=== PATIENT | male | born 1995 | race Two or more races ===

== ENCOUNTER 2024-01-20 10:47 | Emergency (ER) | payer MEDICAID, SELFPAY ==
[2024-01-20 10:54] VITALS: BP 147/88; PULSE 95; RESP 19; TEMP 36.5; O2SAT 97; BMI 26.5
--- NOTE | 2024-01-20 11:23 | PD.EDRME ---
Rapid Medical Screening Exam RME Arrival date/time: 01/20/24 10:47 28-year-old male presents to the emergency department complaining of perianal abscess that is been ongoing for over a week. Patient reports was recently seen in the ER and discharged home on antibiotics. Patient reports symptoms have not resolved and thinks abscess has grown in size. Chief Complaint: Skin/Abscess/Foreign Body Time Seen by Provider: 01/20/24 11:17 Vital signs: Vital Signs Temperature 97.7 F 01/20/24 10:54 Pulse Rate 95 01/20/24 10:54 Respiratory Rate 19 01/20/24 10:54 Blood Pressure 147/88 H 01/20/24 10:54 Pulse Oximetry (%) 97 01/20/24 10:54 Oxygen Delivery Method Room Air 01/20/24 10:54 Vital signs reviewed by provider: Yes
[2024-01-20 11:53] LABS: Lactate (Lactic Acid) 1.3 mMol/L (0.4-2.0)
[2024-01-20 11:56] LABS: Basophils # (Auto) 0.1 Thou/mm3 (0.0-0.2); Basophils % (Auto) 1 % (0-2.5); Eosinophils # (Auto) 0.2 Thou/mm3 (0.0-0.5); Eosinophils % (Auto) 2 % (0-10); Hematocrit 46.2 % (41.0-53.0); Hemoglobin 15.9 g/dL (13.5-16.0); Immature Granulocytes % (Auto) 0 % (0-0); Immature Granulocytes Auto 0.02 Thou/mm3 (0.00-0.00); Lymphocytes # (Auto) 1.7 Thou/mm3 (1.0-4.8); Lymphocytes % (Auto) 16 % (10-50); Mean Corpuscular HGB Conc 34.4 g/dl (31.0-37.0); Mean Corpuscular Hemoglobin 27.9 pg (25.0-35.0); Mean Corpuscular Volume 81 fL (80-100); Monocytes # (Auto) 0.9 Thou/mm3 (0.0-0.8); Monocytes % (Auto) 8 % (0-12); Neutrophils # (Auto) 7.9 Thou/mm3 (1.8-7.7); Neutrophils % (Auto) 74 % (37-80); Nucleated Red Blood Cell % 0 /100 WBC (0); Platelet Count 335 Thou/mm3 (140-440); White Blood Count 10.6 Thou/mm3 (3.8-10.6)
[2024-01-20 12:26] LABS: Alanine Aminotransferase 89 U/L (10-49); Albumin, Serum 5.2 gm/dL (3.5-5.0); Albumin/Globulin Ratio 1.8 (1.2-2.2); Alkaline Phosphatase 133 U/L (46-116); Anion Gap 7 (7-16); Aspartate Amino Transferase 42 U/L (0-34); BUN/Creatinine Ratio 12 Ratio (12-20); Bilirubin,Total 1.2 mg/dL (0.3-1.2); Blood Urea Nitrogen 11 mg/dL (9-23); Carbon Dioxide 28.3 mMol/L (20.0-31.0); Chloride 103 mMol/L (98-107); Creatinine (Component) 0.9 mg/dL (0.6-1.3); Estimated Creatinine Clearance 117.2 mL/min (>60); Globulin 2.9 gm/dL (2.3-3.5); Glucose 119 mg/dL (74-106); Osmolality,Calculated 276 (275-295); Potassium 3.5 mMol/L (3.4-5.1); Procalcitonin 0.09 ng/ml (0.0-0.49); Sodium 138 mMol/L (136-145); Total Protein 8.1 gm/dL (5.7-8.2); eGFR > 60 See Note
[2024-01-20 12:52] LABS: Collection Type, Urine Clean Catch; Squamous Epithelial Cell,Urine 0 /hpf (0-5)
[2024-01-20 13:22] LABS: Bilirubin,Urine Negative (Negative); Blood,Urine Negative (Negative); Clarity,Urine Clear (Clear/Hazy); Color,Urine Lt-Yellow (Lt Yel-Yel); Culture Indicated,Urine Not Indicated; Glucose, Urine Negative (Negative); Ketones,Urine Negative (Negative); Leukocyte Esterase,Urine Negative (Negative); Nitrite,Urine Negative (Negative); Protein,Urine Negative (Neg - Trace); RBC,Urine 1 /hpf (0-3); Specific Gravity,Urine 1.014 (1.001-1.035); Urobilinogen,Urine Negative mg/dL (0.0-1.0); WBC,Urine < 1 /hpf (0-5)
[2024-01-20] MEDS: MORPHINE SULF INJ 10 MG/ML VIAL 4 MG IVP (14:11)
[2024-01-20] MEDS: ONDANSETRON INJ 2 MG/ML INJ 2 ML 4 MG IV (14:12)
[2024-01-20 14:14] VITALS: BP 126/76; PULSE 83; RESP 18; TEMP 37.7; O2SAT 96
--- NOTE | 2024-01-20 15:00 | PD.EDSKIN ---
ED Skin Abcess FB-RME/HPI General Chief complaint: Skin/Abscess/Foreign Body Stated complaint: CYST ON BACKSIDE Time Seen by Provider: 01/20/24 11:17 Source: patient Arrival date/time: 01/20/24 10:47 28-year-old male presents to the emergency department complaining of perianal abscess that is been ongoing for over a week. Patient reports was recently seen in the ER and discharged home on antibiotics. Patient reports symptoms have not resolved and thinks abscess has grown in size. Mode of arrival: ambulatory Limitations: no limitations RME / HPI RME / HPI narrative: 01/20/24 10:47 28-year-old male presents to the emergency department complaining of perianal abscess that is been ongoing for over a week. Patient reports was recently seen in the ER and discharged home on antibiotics. Patient reports symptoms have not resolved and thinks abscess has grown in size. Related Data Previous Rx's ?Medication ?Instructions ?Recorded amoxicillin 875 mg-potassium 1 tab PO Q12H 10 days #20 tabs 01/15/24 clavulanate 125 mg tablet ciprofloxacin HCl 250 mg tablet 500 mg (2 x 250 mg) PO BID 10 days 01/20/24 #40 tabs hydrocodone 5 mg-acetaminophen 325 1 tab PO BID PRN pain #10 tabs 01/20/24 mg tablet metronidazole 500 mg tablet 500 mg PO BID 10 days #20 tabs 01/20/24 Allergies Allergy/AdvReac Type Severity Reaction Status Date / Time No Known Allergies Allergy Verified 01/20/24 10:50 Review of Systems Review of Systems Systems Reviewed: All systems reviewed, normal except as documented Constitutional Constitutional: Reports system reviewed and no additional complaints, except as documented, Denies body ache(s), Denies chills and Denies fever(s) Eyes Eyes: Reports system reviewed and no additional complaints, except as documented and Denies change in vision ENT Ears, Nose, Mouth, and Throat: Reports system reviewed and no additional complaints, except as documented, Denies disequilibrium, Denies dizziness, Denies sore throat and Denies vertigo Cardiovascular Cardiovascular: Reports system reviewed and no additional complaints, except as documented, Denies chest pain and Denies dyspnea Respiratory Respiratory: Reports system reviewed and no additional complaints, except as documented, Denies chest congestion, Denies cough and Denies dyspnea Gastrointestinal Gastrointestinal: Reports system reviewed and no additional complaints, except as documented, Denies abdominal pain, Denies nausea and Denies vomiting Musculoskeletal Musculoskeletal: Reports system reviewed and no additional complaints, except as documented, Denies abnormal gait and Denies arthralgias Integumentary/Breasts Skin/Breast: Reports system reviewed and no additional complaints, except as documented, Denies erythema, Denies rash and Reports wounds (Perianal abscess) Neurologic Neurologic: Reports system reviewed and no additional complaints, except as documented, Denies abnormal gait, Denies disequilibrium, Denies dizziness and Denies vertigo Past Medical History Past Medical History CARDIAC: Positive Hypertension; Negative Cardiac Disorders or Congestive Heart Failure RESPIRATORY: Negative Chronic Obstructive Pulmonary Disease (COPD) or Asthma GENITOURINARY: Negative Renal Disease ENDOCRINE: Negative Diabetes Mellitus Type 1 or Diabetes Mellitus Type 2 HEMATOLOGIC: Negative Sickle Cell Disease Social History SMOKING STATUS: Never smoker ED Exam General Limitations: Present no limitations General appearance: Present alert and in no apparent distress Head Head exam: Present atraumatic Eye Eye exam: Present normal appearance, PERRL and EOMI ENT ENT exam: Present normal exam, normal oropharynx and mucous membranes moist Neck Neck exam: Present normal inspection, full ROM and trachea midline Chest Chest inspection: Present normal inspection and symmetric chest wall rise Respiratory Respiratory exam: Present normal lung sounds bilaterally Cardiovascular Cardiovascular exam: Present regular rate, normal rhythm and normal heart sounds Abdominal Exam Abdominal exam: Present soft and normal bowel sounds Extremities Exam Extremities exam: Present normal inspection and full ROM Back Exam Back exam: Present normal inspection and full ROM Back 1 view image: 1. Perianal abscess no obvious drainage Neurological Exam Neurological exam: Present alert, oriented X3 and CN II-XII intact Psychiatric Psychiatric exam: Present normal affect and normal mood Skin Skin exam: Present warm, dry, intact and erythema Expanded Skin Exam Type of lesion: Present abscess Distribution: Present other (Perianal) Description: Present tenderness, erythematous, swelling and indurated; Absent discharge Course Quality Measures none Orders Category Date Time Status Insert IV NOW Care 01/20/24 12:54 Completed Wound Care [Wound Care] NOW Care 01/20/24 13:03 Completed Consult to General Surgery Stat Cons 01/20/24 12:56 Ordered Blood Culture (Lab) Stat Lab 01/20/24 11:42 Results CBC Stat Lab 01/20/24 11:47 Completed CMP [Comprehensive Metabolic Panel] Stat Lab 01/20/24 11:47 Completed Lactic Acid [Lactate (Lactic Acid)] Stat Lab 01/20/24 11:47 Completed Procalcitonin Stat Lab 01/20/24 11:47 Completed Urinalysis, C/S if Indicated Stat Lab 01/20/24 12:45 Completed Lidocaine 1% 20 ml [Xylocaine 1% 20 ML] Med 01/20/24 13:03 Discontinued 20 ml INFL X1 ONE Morphine Inj Med 01/20/24 12:54 Discontinued 4 mg IVP X1 ONE Ondansetron Inj [Zofran Inj] Med 01/20/24 12:54 Discontinued 4 mg IV X1 ONE Vital Signs Vital signs: Vital Signs Temperature 97.7 F 01/20/24 10:54 Pulse Rate 95 01/20/24 10:54 Respiratory Rate 19 01/20/24 10:54 Blood Pressure 147/88 H 01/20/24 10:54 Pulse Oximetry (%) 97 01/20/24 10:54 Oxygen Delivery Method Room Air 01/20/24 10:54 97% room air within normal limits Skin / Abscess / Foreign Body MDM Narrative MDM Narrative:: 28-year-old male presents to the emergency department complaining of perianal abscess that is been ongoing for over a week. Patient reports was recently seen in the ER and discharged home on antibiotics. Patient reports symptoms have not resolved and thinks abscess has grown in size. CBC negative for any leukocytosis. CMP was unremarkable including lactic and procalcitonin. Patient does not appear septic. Dr. Pruitt consulted and agreed to perform I&D at bedside and have patient follow-up in her office on . Patient discharged on outpatient antibiotic ciprofloxacin and metronidazole. Patient appears nontoxic and hemodynamically stable. Patient given strict instructions to return to emergency department for any worsening symptoms or as needed. Patient data External records reviewed:: [facility] previous records Clinical information provided by:: patient Social determinants that could affect healthcare access:: none Patient has the following chronic illnesses:: See chart How is presenting disease/condition affected by chronic disease/condition?: uneffected by Evaluation data The following diagnostics were reviewed and interpreted by me:: lab results Lab and/or radiology exams considered but not ordered:: Ordered Interpretation Summary: Interpreted by me Medications / Prescriptions Medications or Prescriptions considered but not ordered:: Ordered Medication administrations:: Medication Administration History Discontinued Medications Lidocaine HCl (Lidocaine Hcl 1% 20 Ml Vial) 20 ml INFL X1 ONE Stop: 01/20/24 13:04 Morphine Sulfate (Morphine Sulf Inj 10 Mg/Ml Vial) 4 mg IVP X1 ONE Stop: 01/20/24 12:55 Last Admin: 01/20/24 14:11 Dose: 4 mg Documented By: EDINSON Ondansetron HCl (Ondansetron Inj 2 Mg/Ml Inj 2 Ml) 4 mg IV X1 ONE; Protocol Stop: 01/20/24 12:55 Last Admin: 01/20/24 14:12 Dose: 4 mg Documented By: EDINSON Given Consultations Consultation(s) initiated? (list below): Yes Consultation #1 (Physician, Specialty, Details): Dr Orlando Diagnosis Skin/Abscess Differential Diagnosis: abscess of skin or subcutaneous tissue and cellulitis Most likely diagnosis given after review of the tests above:: Perianal abscess Admission Indicated Admission indicated?: not indicated Explain why admission is indicated or not indicated:: Consulted with Dr. Orlando and reports patient can follow-up outpatient after I&D. Admission Request Was there a request for admission?: No Disposition Plan Disposition Plan: Discharge Discharge Attestation Discharge Attestation: The patient and all family members were given an opportunity to ask questions and understood the discharge instructions. Discharge instructions specifically effects, indications for sooner follow up or return to the emergency department, and the expected course of current diagnosis. Patient condition: Stable Discharge Plan Plan Patient Disposition: HOME (Self Care) Disposition Comment: Stable Prescriptions/Referrals Prescriptions/Med Rec: New hydrocodone-acetaminophen 5-325 mg tablet 1 tab PO BID MDD 2 tabs PRN (Reason: pain) Qty: 10 0RF metronidazole 500 mg tablet 500 mg PO BID 10 Days Qty: 20 0RF ciprofloxacin HCl 250 mg tablet 500 mg PO BID 10 Days Qty: 40 0RF No Action amoxicillin-pot clavulanate 875-125 mg tablet 1 tab PO Q12H 10 Days Qty: 20 0RF Referrals: Brittnee Carlson NP [Primary Care Provider] - In 1 week Sandra Orlando MD [Physician] - 01/25/24 Problem List Clinical Impression: Abscess, perianal Patient/Caregiver Discharge Instructions Discharge Activity: activity as tolerated Education Materials: ED ABSCESS Krystle-Anal IandD Additional Instructions: Follow-up with Dr. Pruitt on in her office. Take antibiotics as prescribed. Return to emergency department for any worsening symptoms or as needed. Print Language: Moroccan Stand Alone Forms: Katarina Award Info., Patient Portal Info Letter MD Attestation Attestation The patient was seen by the midlevel practitioner. I, the co-signing physician, was present during the entire ER visit. While I did not physically examine the patient, I was available for consultation as needed.
--- NOTE | 2024-01-20 15:16 | PD.SURCONS ---
HPI Consult details History of present illness: 28M presenting with persistent perianal abscess. Pt was seen last week in ER, at that time there was no drainable collection and pt was sent home with PO abx. Pt has been taking sitz baths and continued his abx but returned as pain has worsened. Exam consistent with worsening perianal abscess Review of Systems Review of Systems ROS Unobtainable: All systems reviewed & no additional complaints except as documented Meds Home Medications and Allergies Allergies Allergy/AdvReac Type Severity Reaction Status Date / Time No Known Allergies Allergy Verified 01/20/24 10:50 Exam Vital Signs Temp Pulse Resp BP Pulse Ox O2 Del Method 99.9 F 83 18 126/76 96 Room Air 01/20/24 14:14 01/20/24 14:14 01/20/24 14:14 01/20/24 14:14 01/20/24 14:14 01/20/24 14:14 Constitutional Constitutional: no acute distress Routine Respiratory Exam Respiratory: Present no resp distress Routine Rectal Exam Comments: left perianal fluctuance, no erythema Results Results: Laboratory Laboratory results: results reviewed Assessment & Plan Plan 28M presenting with perianal abscess refractory to PO abx. I offered aspiration vs incision and drainage and explained risks/benefits of each approach with an wholesale account executive, including the 50% possibility of developing a perianal fistula after I&D. Pt expressed understanding and prefers aspiration for now
--- NOTE | 2024-01-20 15:23 | PD.SURPROC ---
Procedures - Surgery Procedure Comment Procedure Comment: Informed consent obtained Area cleansed with iodine Aspiration with 18g needle at area of most fluctuance with return of 3cc pus Hemostasis achieved with direct pressure Pt tolerated well Abscess I/D Site: other (Perianal) Side (if applicable): left Sedation/analgesia: other (Morphine 4mg IV) Technique: needle aspiration (with 18g needle with return of approx 3cc pus) Amount of fluid (mL): 3 Irrigation: No Packing used?: none
[2024-01-20 15:45] VITALS: BP 128/78; PULSE 80; RESP 18; TEMP 36.8; O2SAT 98
== END 2024-01-20 16:09 | disposition home or self-care (01) ==
PROVIDERS: Emergency Provider Emergency Medicine; PCP Nurse Practitioner Women's Health
DX: K61.0 Anal abscess (principal)
CPT/HCPCS: 46050; 36415; 80053; 81001; 83605; 84145; 85025; 87040; 96374; 96375; 99284; J2270; J2405

== ENCOUNTER 2024-01-25 09:47 | Outpatient (AMB) | payer MEDICAID, SELFPAY ==
[2024-01-25 10:00] VITALS: BP 136/84; PULSE 64; RESP 19; TEMP 36.3; O2SAT 98; BMI 26.9
--- NOTE | 2024-01-25 10:00 | PD.GSCLVISIT ---
Vital Signs - [facility] 01/25/24 10:00 Height 1.73 m Height Method Stated Weight 80.456 kg Weight Measurement Method Standing Scale BMI 26.9 BP 136/84 H Blood Pressure Source Automatic Cuff Blood Pressure Location Right Upper Arm Position Sitting Respiration 19 Pulse 64 Pulse Source Monitor Temp 97.3 F Temp Source Temporal Artery Scan Pulse Oximetry (%) 98 Oxygen Delivery Method Room Air Med/Allergies Allergies & Medications Allergies No Known Allergies Allergy (Verified 01/25/24 10:01) Medication Reconciliation ciprofloxacin HCl 250 mg tablet 500 mg (2 x 250 mg) PO BID 10 days #40 tabs 01/20/24 [Rx Confirmed 01/25/24] hydrocodone 5 mg-acetaminophen 325 mg tablet 1 tab PO BID PRN pain #10 tabs 01/20/24 [Rx Confirmed 01/25/24] metronidazole 500 mg tablet 500 mg PO BID 10 days #20 tabs 01/20/24 [Rx Confirmed 01/25/24] hydrocortisone 2.5 % topical cream with perineal applicator 1 applic ID QD-BID PRN itching #30 grams 01/25/24 [Rx] MA Intake Visit Data Collection New Patient or Established: Established Patient (seen at [facility] within 3 years) Seen by Clinical Staff ONLY (RN/MA): No Reason for Visit:: PERIANAL ABSCESS Pain Present Currently: No Pain scale:: 0 Computer Systems Design Analyst Required: Yes PCP or OBGYN visit in last 3 months: Yes Hx Now: No Do You Feel Safe at Home: Yes Authorities Contacted: N/A Smoking Status Smoking Status: Never smoker Immunization / Flu Flu Vaccine in the Last 12 Months: No Flu Vaccine Exclusion Criteria: Refused by Patient Past Medical History Past Medical History CARDIAC: Positive Hypertension; Negative Cardiac Disorders or Congestive Heart Failure RESPIRATORY: Negative Chronic Obstructive Pulmonary Disease (COPD) or Asthma GENITOURINARY: Negative Renal Disease ENDOCRINE: Negative Diabetes Mellitus Type 1 or Diabetes Mellitus Type 2 HEMATOLOGIC: Negative Sickle Cell Disease Social History SMOKING STATUS: Smoking status: Never smoker HPI HPI Narrative 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 Pt reports that he had drainage the day of and after the procedure but not since then, and he is feeling better with less pain to the area. He has some pruritis which he is treating with alcohol wipes. He states are BMs are soft and regular without any straining ROS Review of Systems Systems Reviewed: All systems reviewed, normal except as documented Objective/Exam General General Appearance: alert, cooperative and well groomed Resp Respiratory exam: Absent respiratory distress Rectal Rectal exam: Present other (induration at left anterior perianal region with no fluctuance, no erythema or drainage) Assessment & Plan Diagnosis / Problem List (1) Abscess, perianal: Status: Inactive Assessment & Plan: 28M s/p aspiration of perianal abscess, recovering well Plan: Hydrocortisone cream PRN for itching Follow up as needed Office Procedures GNS Level of Care Nursing/Assessment Patient Status: Established Patient Nursing Assessment/Reassesment: Medication Reconciliation, Update PMH in EMR and Vital Signs Coordination of Care: Complex Care and Chronic Disease 1-5, Education Complex Pt/Fam, Consent,records obtained, informed consent, 1 Ins Authorization, Results/Orders obtained and Staff clarify orders Special Needs: Language special needs Established Patient Charge Established Patient Point Assignment: 110 Established Patient Point Charge: EP Level 3 (80-115) Patient Portal Questionaires Social History Tobacco History Smoking Status: Never smoker Domestic Abuse History Do You Feel Safe at Home: Yes Review of Systems Report any current symptoms Only answer those that you have currently: Past Medical History Past Medical History Have you ever been diagnosed with any of the following: Cardiology Problems Congestive Heart Failure: No Hypertension: Yes Respiratory Problems Chronic Obstructive Pulmonary Disease (COPD): No Asthma: No Genital/Urinary Problems Renal Disease: No Endocrine Problems Diabetes Mellitus Type 1: No Diabetes Mellitus Type 2: No Blood Problems Sickle Cell Disease: No
== END 2024-01-25 10:28 | disposition home or self-care (01) ==
PROVIDERS: PCP Nurse Practitioner Women's Health; Referring Provider Nurse Practitioner Women's Health; Supervising Provider Surgery; Visit Provider Surgery
DX: Z48.817 Encounter for surgical aftercare following surgery on the skin and subcutaneous tissue (principal)
CPT/HCPCS: 99213; G0463

== ENCOUNTER 2024-03-09 02:19 | Emergency (ER) | payer MEDICAID, SELFPAY ==
[2024-03-09 03:07] VITALS: BP 144/86; PULSE 62; RESP 16; TEMP 36.8; O2SAT 98
--- NOTE | 2024-03-09 03:22 | XR_ITS ---
Examination: Fingers, left hand first digit 3 views Technique: AP, oblique, lateral views left hand first digit 3 views. Exam date and time: March 01, 2024 0328 hrs. Indications: Injury to the hand today with first digit pain. Findings: No acute fracture No dislocation No foreign body Impression: No acute fracture
[2024-03-09] MEDS: DOXYCYCLINE 100 MG TABLET PO (03:53)
--- NOTE | 2024-03-09 04:11 | EDNOTE_ITS ---
ED Skin Abcess FB-RME/HPI General Chief complaint: Hand/Wrist Problems Stated complaint: TORN IN LEFT THUMB Time Seen by Provider: 03/09/24 03:14 Arrival date/time: 03/09/24 02:19 28M with no significant PMH presents to ED with 2 days of L thumb pain after he accidentally got a splinter stuck in it. Patient took part of it out, but the rest is embedded in the skin. Patient has had a tetanus shot in the past 5 years. Limitations: no limitations Related Data Previous Rx's ?Medication ?Instructions ?Recorded hydrocodone 5 mg-acetaminophen 325 1 tab PO BID PRN pain #10 tabs 01/20/24 mg tablet hydrocortisone 2.5 % topical cream 1 applic [place] QD-BID PRN itching #30 01/25/24 with perineal applicator grams doxycycline hyclate 100 mg tablet 100 mg PO BID 7 days #14 tabs 03/09/24 Allergies Allergy/AdvReac Type Severity Reaction Status Date / Time No Known Allergies Allergy Verified 03/09/24 02:21 Review of Systems Review of Systems Systems Reviewed: All systems reviewed, normal except as documented Constitutional Constitutional: Reports system reviewed and no additional complaints, except as documented, Denies fever(s) and Denies headache(s) ENT Ears, Nose, Mouth, and Throat: Denies disequilibrium and Denies headache(s) Cardiovascular Cardiovascular: Reports system reviewed and no additional complaints, except as documented, Denies chest pain and Denies dyspnea Respiratory Respiratory: Reports system reviewed and no additional complaints, except as documented, Denies cough and Denies dyspnea Gastrointestinal Gastrointestinal: Reports system reviewed and no additional complaints, except as documented, Denies abdominal pain, Denies nausea and Denies vomiting Integumentary/Breasts Skin/Breast: Reports as per HPI and Reports skin pain Neurologic Neurologic: Reports system reviewed and no additional complaints, except as documented, Denies confusion, Denies disequilibrium and Denies headache(s) Psychiatric Psychiatric: Denies confusion Past Medical History Past Medical History CARDIAC: Positive Hypertension; Negative Cardiac Disorders or Congestive Heart Failure RESPIRATORY: Negative Chronic Obstructive Pulmonary Disease (COPD) or Asthma GENITOURINARY: Negative Renal Disease ENDOCRINE: Negative Diabetes Mellitus Type 1 or Diabetes Mellitus Type 2 HEMATOLOGIC: Negative Sickle Cell Disease Social History SMOKING STATUS: Never smoker ED Exam General Limitations: Present no limitations General appearance: Present alert and in no apparent distress Head Head exam: Present atraumatic Eye Eye exam: Present normal appearance, PERRL and EOMI ENT ENT exam: Present normal exam, normal oropharynx and mucous membranes moist Neck Neck exam: Present normal inspection, full ROM and trachea midline Chest Chest inspection: Present normal inspection and symmetric chest wall rise Respiratory Respiratory exam: Present normal lung sounds bilaterally Cardiovascular Cardiovascular exam: Present regular rate, normal rhythm and normal heart sounds Abdominal Exam Abdominal exam: Present soft and normal bowel sounds Extremities Exam Extremities exam: Present full ROM Expanded Upper Extremity Exam Hand exam: Present full ROM, tenderness, laceration (L thumb puncture wound) and erythema Back Exam Back exam: Present normal inspection and full ROM Neurological Exam Neurological exam: Present alert, oriented X3 and CN II-XII intact Psychiatric Psychiatric exam: Present normal affect and normal mood Skin Skin exam: Present warm, dry, intact and normal color Course Quality Measures none Orders Category Date Time Status Wound Care NOW Care 03/09/24 03:14 Active XR finger LT min 2V Stat Exams 03/09/24 03:22 Taken Doxycycline [Vibramycin] Med 03/09/24 03:40 Discontinued 100 mg PO X1 ONE Vital Signs Vital signs: Vital Signs Temperature 98.2 F 03/09/24 03:07 Pulse Rate 62 03/09/24 03:07 Respiratory Rate 16 03/09/24 03:07 Blood Pressure 144/86 H 03/09/24 03:07 Pulse Oximetry (%) 98 03/09/24 03:07 Oxygen Delivery Method Room Air 03/09/24 03:07 O2 at 98% on RA and WNLs Skin / Abscess / Foreign Body MDM Narrative MDM Narrative:: 28M with no significant PMH presents to ED with 2 days of L thumb pain after he accidentally got a splinter stuck in it. Patient took part of it out, but the rest is embedded in the skin. Patient has had a tetanus shot in the past 5 year s. Physical exam reveals puncture wound near L thumbnail, as well as some redness/tenderness. ROM intact. Patient is afebrile, calm, and alert. Wet XR read reveals no opaque FB. Given no obvious visualization and being in important neurovascular structures, will not blindly dig for splinter as skin will form granuloma around it or push it out. ABX prophylaxis given. Patient data External records reviewed:: [facility] previous records Clinical information provided by:: patient Social determinants that could affect healthcare access:: none Patient has the following chronic illnesses:: none How is presenting disease/condition affected by chronic disease/condition?: no chronic disease Evaluation data The following diagnostics were reviewed and interpreted by me:: radiology exam(s) Lab and/or radiology exams considered but not ordered:: ordered Interpretation Summary: above Medications / Prescriptions Medications or Prescriptions considered but not ordered:: ordered Medication administrations:: Medication Administration History Discontinued Medications Doxycycline Hyclate (Doxycycline 100 Mg Tablet) 100 mg PO X1 ONE Stop: 03/09/24 03:41 Last Admin: 03/09/24 03:53 Dose: 100 mg Documented By: CVL above Consultations Consultation(s) initiated? (list below): No Diagnosis Skin/Abscess Differential Diagnosis: abscess of skin or subcutaneous tissue, viral exanthem, dermatophytosis, urticaria, herpes zoster, allergic reaction to drug, cellulitis, eczema, impetigo, contact dermatitis and other (FB skin) Most likely diagnosis given after review of the tests above:: FB skin Admission Indicated Admission indicated?: not indicated Admission Request Was there a request for admission?: No Disposition Plan Disposition Plan: Discharge Discharge Attestation Discharge Attestation: The patient and all family members were given an opportunity to ask questions and understood the discharge instructions. Discharge instructions specifically effects, indications for sooner follow up or return to the emergency department, and the expected course of current diagnosis. Patient condition: Stable Discharge Plan Plan Patient Disposition: HOME (Self Care) Disposition Comment: Stable Prescriptions/Referrals Prescriptions/Med Rec: New doxycycline hyclate 100 mg tablet 100 mg PO BID 7 Days Qty: 14 0RF No Action hydrocortisone 2.5 % cream with perineal applicator 1 applic [place] QD-BID PRN (Reason: itching) Qty: 30 0RF hydrocodone-acetaminophen 5-325 mg tablet 1 tab PO BID MDD 2 tabs PRN (Reason: pain) Qty: 10 0RF Problem List Clinical Impression: Foreign body in skin Patient/Caregiver Discharge Instructions Education Materials: ED Foreign Body Soft Tissue Additional Instructions: Please follow-up with PCP within 24-48 hours and return immediately if symptoms worsen. Keep area clean, bandaged and dry. Print Language: Kittitian Stand Alone Forms: Patient Portal Info Letter CAM/SILVESTRE Supervising Physician CAM/SILVESTRE Supervising Physician: Dr. Contreras
== END 2024-03-09 03:57 | disposition home or self-care (01) ==
LOC: SERX 04:29
PROVIDERS: Emergency Provider Emergency Medicine; PCP Family Medicine
DX: S60.352A Superficial foreign body of left thumb, initial encounter (principal); W45.8XXA Other foreign body or object entering through skin, initial encounter
CPT/HCPCS: 73140; 99283; A9270

== ENCOUNTER → 2024-05-27 | Outpatient (CLI) | payer SELFPAY ==
[2024-05-27 09:35] LABS: Motl CLS 2 60
[2024-05-27 11:32] LABS: % Variance Motility 0 %; Motl CLS 1 60; Room Temperature 23 (20-27C (Area)); Sperm Motility 60 % (>=50)
[2024-05-27 12:54] LABS: % Variance 8 %; Count Side 1 37; Count Side 2 40; Sperm Count 38 Million (20-50)
== END | disposition home or self-care (01) ==
PROVIDERS: PCP Family Medicine; Referring Provider Family Medicine; Visit Provider Family Medicine
DX: Z31.41 Encounter for fertility testing (principal)
CPT/HCPCS: 89310

== ENCOUNTER 2024-08-07 13:11 | Outpatient (AMB) | payer MEDICAID, SELFPAY ==
--- NOTE | 2024-08-07 13:43 | GSCOFFNT_ITS ---
[facility]s - [facility] 08/07/24 13:44 Height 1.73 m Height Method Stated Weight 83.263 kg Weight Measurement Method Standing Scale BMI 27.8 BP 129/79 Blood Pressure Source Automatic Cuff Blood Pressure Location Left Upper Arm Position Sitting Respiration 18 Pulse 2 L Pulse Source Monitor Temp 98.0 F Temp Source Temporal Artery Scan Pulse Oximetry (%) 98 Oxygen Delivery Method Room Air Med/Allergies Allergies & Medications Allergies No Known Allergies Allergy (Verified 08/07/24 13:45) Medication Reconciliation hydrocodone 5 mg-acetaminophen 325 mg tablet 1 tab PO BID PRN pain #10 tabs 01/20/24 [Rx Confirmed 08/07/24] hydrocortisone 2.5 % topical cream with perineal applicator 1 applic [place] QD-BID PRN itching #30 grams 01/25/24 [Rx Confirmed 08/07/24] MA Intake Visit Data Collection New Patient or Established: Established Patient (seen at [facility] within 3 years) Seen by Clinical Staff ONLY (RN/MA): No Reason for Visit:: ABCESS BUTTOX F/U Pain Present Currently: No (DISCOMFORT) Account Underwriter Required: Yes PCP or OBGYN visit in last 3 months: Yes Hx Now: No Do You Feel Safe at Home: Yes Authorities Contacted: N/A Smoking Status Smoking Status: Never smoker Immunization / Flu Flu Vaccine in the Last 12 Months: No Flu Vaccine Exclusion Criteria: No Exclusion Criteria Past Medical History Past Medical History CARDIAC: Positive Hypertension; Negative Cardiac Disorders or Congestive Heart Failure RESPIRATORY: Negative Chronic Obstructive Pulmonary Disease (COPD) or Asthma GENITOURINARY: Negative Renal Disease ENDOCRINE: Negative Diabetes Mellitus Type 1 or Diabetes Mellitus Type 2 HEMATOLOGIC: Negative Sickle Cell Disease Social History SMOKING STATUS: Smoking status: Never smoker HPI HPI Narrative Spoke to pt with in-person full time staff interpreter 29M with history of perianal abscess s/p bedside aspiration 01/2024 here for follow up. Pt states that for the past 2 weeks he has had drainage from the area, sometimes requiring him to change the gauze in his undergarment multiple times a day. He has some pain and swelling to the area but denies any fever or malaise. Pt states he rarely has abdominal pain, usually in the LLQ but it tends to be short-lived. He denies any concerns about his BMs, stating they are soft without any straining or diarrhea. He was prescribed abx by his PCP a couple weeks ago and is using hydrocortisone cream which helps with itching. He does take sitz baths sometimes but feels they do not improve his pain PMH: Perianal abscess PSHx: None Meds: None Allergies: NKDA Social hx: Nonsmoker Family hx: No known IBD or malignancy ROS Review of Systems Systems Reviewed: All systems reviewed, normal except as documented Objective/Exam General General Appearance: alert, cooperative and well groomed Resp Respiratory exam: Absent respiratory distress Rectal Rectal exam: Present other (at the left gluteus approx 3cm from anal verge there is an area of erythema and induration, it is mildly tender but not currently draining) Assessment & Plan Diagnosis / Problem List (1) Perianal fistula: Status: Acute Assessment & Plan: 29M s/p aspiration of perianal abscess 01/2024 now with signs and symptoms of a perianal fistula. I explained that this unfortunately occurs in 50% of patients with perianal abscess and offered surgical treatment in two stages, first seton placement followed by definitive repair when drainage decreases. I explained risks of pain, fistula recurrence and fecal incontinence which tends to be temporary. Pt expressed understanding and would like to consider before proceeding with surgery Plan: F/u in 6 weeks Office Procedures GNS Level of Care Nursing/Assessment Patient Status: Established Patient Nursing Assessment/Reassesment: Medication Reconciliation, Update PMH in EMR and Vital Signs Coordination of Care: Complex Care and Chronic Disease 1-5, Consent,records obtained, informed consent, Education Simp Pt/Fam, Results/Orders obtained and Staff clarify orders Special Needs: Language special needs Established Patient Charge Established Patient Point Assignment: 90 Established Patient Point Charge: EP Level 3 (80-115) Patient Portal Questionaires Social History Tobacco History Smoking Status: Never smoker Domestic Abuse History Do You Feel Safe at Home: Yes Review of Systems Report any current symptoms Only answer those that you have currently: Past Medical History Past Medical History Have you ever been diagnosed with any of the following: Cardiology Problems Congestive Heart Failure: No Hypertension: Yes Respiratory Problems Chronic Obstructive Pulmonary Disease (COPD): No Asthma: No Genital/Urinary Problems Renal Disease: No Endocrine Problems Diabetes Mellitus Type 1: No Diabetes Mellitus Type 2: No Blood Problems Sickle Cell Disease: No
[2024-08-07 13:44] VITALS: BP 129/79; PULSE 2; RESP 18; TEMP 36.7; O2SAT 98; BMI 27.8
== END 2024-08-07 14:13 | disposition home or self-care (01) ==
LOC: HODSRG 13:11
PROVIDERS: PCP Family Medicine; Referring Provider Family Medicine; Supervising Provider Surgery; Visit Provider Surgery
DX: K60.30 Anal fistula, unspecified (principal)
CPT/HCPCS: 99213; G0463

== ENCOUNTER 2024-09-09 09:38 | Outpatient (AMB) | payer MEDICAID, SELFPAY ==
[2024-09-09 09:47] VITALS: BP 137/87; PULSE 68; RESP 19; TEMP 36.6; O2SAT 96; BMI 27.8
--- NOTE | 2024-09-09 09:47 | PD.GSCLVISIT ---
Vital Signs - [facility] 09/09/24 09:47 Height 1.73 m Height Method Stated Weight 83.461 kg Weight Measurement Method Standing Scale BMI 27.8 BP 137/87 H Blood Pressure Source Automatic Cuff Blood Pressure Location Left Upper Arm Position Sitting Respiration 19 Pulse 68 Pulse Source Monitor Temp 97.9 F Temp Source Temporal Artery Scan Pulse Oximetry (%) 96 Oxygen Delivery Method Room Air Med/Allergies Allergies & Medications Allergies No Known Allergies Allergy (Verified 09/09/24 09:49) Medication Reconciliation hydrocodone 5 mg-acetaminophen 325 mg tablet 1 tab PO BID PRN pain #10 tabs 01/20/24 [Rx Confirmed 09/09/24] hydrocortisone 2.5 % topical cream with perineal applicator 1 applic [place] QD-BID PRN itching #30 grams 01/25/24 [Rx Confirmed 09/09/24] metronidazole 1 % topical gel with pump 1 applic topical QDAY #55 grams 09/09/24 [Rx] MA Intake Visit Data Collection New Patient or Established: Established Patient (seen at [facility] within 3 years) Seen by Clinical Staff ONLY (RN/MA): No Reason for Visit:: 6 WEEK FOLLOW UP Pain Present Currently: No Tunnel Heading Inspector Required: Yes PCP or OBGYN visit in last 3 months: Yes Smoking Status Smoking Status: Never smoker Immunization / Flu Flu Vaccine in the Last 12 Months: No Flu Vaccine Exclusion Criteria: No Exclusion Criteria Past Medical History Past Medical History CARDIAC: Positive Hypertension; Negative Cardiac Disorders or Congestive Heart Failure RESPIRATORY: Negative Chronic Obstructive Pulmonary Disease (COPD) or Asthma GENITOURINARY: Negative Renal Disease ENDOCRINE: Negative Diabetes Mellitus Type 1 or Diabetes Mellitus Type 2 HEMATOLOGIC: Negative Sickle Cell Disease Social History SMOKING STATUS: Smoking status: Never smoker HPI HPI Narrative 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 Pt states he continues to have drainage, sometimes it is bloody in nature but overall the amount has decreased compared to previous drainage. He notes that when he is working in the heat the drainage tends to increase. He denies any pain or fever and reports his BMs remain soft without any need for straining ROS Review of Systems Systems Reviewed: All systems reviewed, normal except as documented Objective/Exam General General Appearance: alert, cooperative and well groomed Resp Respiratory exam: Absent respiratory distress Assessment & Plan Diagnosis / Problem List (1) Perianal fistula: Status: Acute Assessment & Plan: 29M with perianal fistula after I&D of perianal abscess, reporting overall decrease in drainage and no other symptoms. We discussed continuing to observe, attempting silver nitrate cauterization as well as surgery and pt prefers to hold off on anything invasive for now as his symptoms are overall improving. He would like to try something topical so I will prescribe metronidazole cream and follow up in 6 weeks Office Procedures GNS Level of Care Nursing/Assessment Patient Status: Established Patient Nursing Assessment/Reassesment: Medication Reconciliation, Update PMH in EMR and Vital Signs Coordination of Care: Complex Care and Chronic Disease 1-5, Consent,records obtained, informed consent, Education Simp Pt/Fam, Results/Orders obtained and Staff clarify orders Special Needs: Language special needs Established Patient Charge Established Patient Point Assignment: 90 Established Patient Point Charge: EP Level 3 (80-115) Patient Portal Questionaires Social History Tobacco History Smoking Status: Never smoker Review of Systems Report any current symptoms Only answer those that you have currently: Past Medical History Past Medical History Have you ever been diagnosed with any of the following: Cardiology Problems Congestive Heart Failure: No Hypertension: Yes Respiratory Problems Chronic Obstructive Pulmonary Disease (COPD): No Asthma: No Genital/Urinary Problems Renal Disease: No Endocrine Problems Diabetes Mellitus Type 1: No Diabetes Mellitus Type 2: No Blood Problems Sickle Cell Disease: No
== END 2024-09-09 10:07 | disposition home or self-care (01) ==
LOC: HODSRG 09:38
PROVIDERS: PCP Family Medicine; Referring Provider Family Medicine; Supervising Provider Surgery; Visit Provider Surgery
DX: K60.30 Anal fistula, unspecified (principal); I10 Essential (primary) hypertension
CPT/HCPCS: 99213; G0463

== ENCOUNTER 2024-10-21 09:21 | Outpatient (AMB) | payer MEDICAID, SELFPAY ==
--- NOTE | 2024-10-21 09:30 | PD.GSCLVISIT ---
Vital Signs - [facility] 10/21/24 09:33 Height 1.73 m Height Method Measured Weight 83.461 kg Weight Measurement Method Standing Scale BMI 27.8 BP 149/95 H Blood Pressure Source Automatic Cuff Blood Pressure Location Left Upper Arm Position Sitting Respiration 18 Pulse 69 Pulse Source Monitor Temp 97.8 F Temp Source Temporal Artery Scan Pulse Oximetry (%) 98 Oxygen Delivery Method Room Air Med/Allergies Allergies & Medications Allergies No Known Allergies Allergy (Verified 10/21/24 09:34) Medication Reconciliation hydrocodone 5 mg-acetaminophen 325 mg tablet 1 tab PO BID PRN pain #10 tabs 01/20/24 [Rx Confirmed 10/21/24] metronidazole 1 % topical gel with pump 1 applic topical QDAY #55 grams 09/09/24 [Rx Confirmed 10/21/24] hydrocortisone 2.5 % topical cream with perineal applicator 1 applic [place] QD-BID PRN itching 6 weeks #30 grams 10/21/24 [Rx] MA Intake Visit Data Collection New Patient or Established: Established Patient (seen at [facility] within 3 years) Seen by Clinical Staff ONLY (RN/MA): No Pain Present Currently: No Beamster Required: Yes PCP or OBGYN visit in last 3 months: Yes Hx Now: No Do You Feel Safe at Home: Yes Authorities Contacted: N/A Smoking Status Smoking Status: Never smoker Immunization / Flu Flu Vaccine in the Last 12 Months: No Flu Vaccine Exclusion Criteria: Refused by Patient Past Medical History Past Medical History CARDIAC: Positive Hypertension; Negative Cardiac Disorders or Congestive Heart Failure RESPIRATORY: Negative Chronic Obstructive Pulmonary Disease (COPD) or Asthma GENITOURINARY: Negative Renal Disease ENDOCRINE: Negative Diabetes Mellitus Type 1 or Diabetes Mellitus Type 2 HEMATOLOGIC: Negative Sickle Cell Disease Social History SMOKING STATUS: Smoking status: Never smoker HPI HPI Narrative Spoke to pt with in-person knowledge analyst 29M with perianal fistula here for follow up. Pt did not receive the metronidazole cream but he is using hydrocortisone cream and overall he feels very well, stating that he has little to no pain and that the drainage is minimal. He is now having some days without drainage and his BMs are still soft without any straining or diarrhea ROS Review of Systems Systems Reviewed: All systems reviewed, normal except as documented Objective/Exam General General Appearance: alert, cooperative and well groomed Resp Respiratory exam: Absent respiratory distress Assessment & Plan Diagnosis / Problem List (1) Perianal fistula: Status: Acute Assessment & Plan: 29M with perianal fistula, reporting improvement in pain and drainage compared to previous visits. For this reason I did not recommend silver nitrate or surgery, I will prescribe more hydrocortisone cream and follow up in 6 weeks. All questions were answered and pt is agreeable with this plan Office Procedures GNS Level of Care Nursing/Assessment Patient Status: Established Patient Nursing Assessment/Reassesment: Medication Reconciliation, Update PMH in EMR and Vital Signs Coordination of Care: Complex Care and Chronic Disease 1-5, Consent,records obtained, informed consent, Education Simp Pt/Fam, Results/Orders obtained and Staff clarify orders Special Needs: Language special needs Established Patient Charge Established Patient Point Assignment: 90 Established Patient Point Charge: EP Level 3 (80-115) Patient Portal Questionaires Social History Tobacco History Smoking Status: Never smoker Domestic Abuse History Do You Feel Safe at Home: Yes Review of Systems Report any current symptoms Only answer those that you have currently: Past Medical History Past Medical History Have you ever been diagnosed with any of the following: Cardiology Problems Congestive Heart Failure: No Hypertension: Yes Respiratory Problems Chronic Obstructive Pulmonary Disease (COPD): No Asthma: No Genital/Urinary Problems Renal Disease: No Endocrine Problems Diabetes Mellitus Type 1: No Diabetes Mellitus Type 2: No Blood Problems Sickle Cell Disease: No
[2024-10-21 09:33] VITALS: BP 149/95; PULSE 69; RESP 18; TEMP 36.6; O2SAT 98; BMI 27.8
== END 2024-10-21 10:23 | disposition home or self-care (01) ==
LOC: HODSRG 09:21
PROVIDERS: PCP Family Medicine; Referring Provider Family Medicine; Supervising Provider Surgery; Visit Provider Surgery
DX: K60.30 Anal fistula, unspecified (principal)
CPT/HCPCS: 99213; G0463

== ENCOUNTER 2024-12-06 09:26 | Outpatient (AMB) | payer MEDICAID, SELFPAY ==
[2024-12-06 09:44] VITALS: BP 156/85; PULSE 85; RESP 18; TEMP 36.9; O2SAT 98; BMI 27.9
--- NOTE | 2024-12-06 09:44 | PD.GSCLVISIT ---
[facility] 12/06/24 09:44 Height 1.73 m Height Method Stated Weight 83.688 kg Weight Measurement Method Standing Scale BMI 27.9 BP 156/85 H Blood Pressure Source Automatic Cuff Blood Pressure Location Right Upper Arm Position Sitting Respiration 18 Pulse 85 Pulse Source Monitor Temp 98.5 F Temp Source Temporal Artery Scan Pulse Oximetry (%) 98 Oxygen Delivery Method Room Air Med/Allergies Allergies & Medications Allergies No Known Allergies Allergy (Verified 12/06/24 09:45) Medication Reconciliation hydrocodone 5 mg-acetaminophen 325 mg tablet 1 tab PO BID PRN pain #10 tabs 01/20/24 [Rx Confirmed 12/06/24] metronidazole 1 % topical gel with pump 1 applic topical QDAY #55 grams 09/09/24 [Rx Confirmed 12/06/24] hydrocortisone 2.5 % topical cream with perineal applicator 1 applic [place] QD-BID PRN itching 6 weeks #30 grams 10/21/24 [Rx Confirmed 12/06/24] MA Intake Visit Data Collection New Patient or Established: Established Patient (seen at [facility] within 3 years) Reason for Visit:: 6 WEEK F/U PERIANAL FISTULA Pain Present Currently: No Pain scale:: 0 Pain Scale Used: Pride-Miller/Numerical Master Control Technician Required: Yes PCP or OBGYN visit in last 3 months: Yes Hx Now: No Do You Feel Safe at Home: Yes Authorities Contacted: N/A Smoking Status Smoking Status: Never smoker Immunization / Flu Flu Vaccine in the Last 12 Months: No Flu Vaccine Exclusion Criteria: No Exclusion Criteria Past Medical History Past Medical History CARDIAC: Positive Hypertension; Negative Cardiac Disorders or Congestive Heart Failure RESPIRATORY: Negative Chronic Obstructive Pulmonary Disease (COPD) or Asthma GENITOURINARY: Negative Renal Disease ENDOCRINE: Negative Diabetes Mellitus Type 1 or Diabetes Mellitus Type 2 HEMATOLOGIC: Negative Sickle Cell Disease Social History SMOKING STATUS: Smoking status: Never smoker Travel Risk Travel Hx Recent Travel: No HPI HPI Narrative HISTORY OF PRESENT ILLNESS ISandra, have obtained verbal consent from the patient, to be recorded during this encounter which may include, but not limited to, medical history, examination, treatment plans, and relevant health information.? Patient was informed that recording will be read and reviewed by myself before inclusion in the medical chart. The patient is a male who presents for a follow-up of an anal fistula. He is accompanied by a recorder helper seismograph. He reports experiencing drainage from the fistula today, which was more than usual. However, he notes that the frequency of drainage has decreased since his last visit. He is not experiencing any pain and his bowel movements are regular. He recalls that the drainage reduced and the pain subsided after the rupture of the fistula. Currently, he only experiences a burning sensation. He also mentions that the fistula opens up when he exerts himself. Initially, the condition was so severe that he was unable to sit or walk, leading to missed workdays. However, he is now able to perform his daily activities, although lifting heavy objects can cause some discomfort. ROS Review of Systems Systems Reviewed: All systems reviewed, normal except as documented Objective/Exam General General Appearance: alert, cooperative and well groomed Resp Respiratory exam: Absent respiratory distress Rectal Rectal exam: Present other (Anal examination revealed a closed fistula at the left perianal region with no visible opening. No signs of active drainage were observed and no erythema) Assessment & Plan Diagnosis / Problem List (1) Perianal fistula: Status: Acute Assessment & Plan: 29M with perianal fistula, reporting continued improvement in pain and drainage compared to previous visits. We again discussed the possibility of surgery versus observation. On my exam today the fistula was closed so I recommended continuing to observe, will follow-up in 6 weeks but I encouraged patient to follow-up sooner if the drainage increases in the meantime Orders: Orders Silver nitrate applicator topical stick Today Office Procedures GNS Level of Care Nursing/Assessment Patient Status: Established Patient Nursing Assessment/Reassesment: Medication Reconciliation, Update PMH in EMR and Vital Signs Coordination of Care: Complex Care and Chronic Disease 1-5, Education Complex Pt/Fam, Consent,records obtained, informed consent, Results/Orders obtained and Staff clarify orders Special Needs: Language special needs Established Patient Charge Established Patient Point Assignment: 95 Established Patient Point Charge: EP Level 3 (80-115) Patient Portal Questionaires Social History Tobacco History Smoking Status: Never smoker Domestic Abuse History Do You Feel Safe at Home: Yes Review of Systems Report any current symptoms Only answer those that you have currently: Past Medical History Past Medical History Have you ever been diagnosed with any of the following: Cardiology Problems Congestive Heart Failure: No Hypertension: Yes Respiratory Problems Chronic Obstructive Pulmonary Disease (COPD): No Asthma: No Genital/Urinary Problems Renal Disease: No Endocrine Problems Diabetes Mellitus Type 1: No Diabetes Mellitus Type 2: No Blood Problems Sickle Cell Disease: No
== END 2024-12-06 10:13 | disposition home or self-care (01) ==
LOC: HODSRG 09:26
PROVIDERS: PCP Family Medicine; Referring Provider Family Medicine; Supervising Provider Surgery; Visit Provider Surgery
DX: K60.30 Anal fistula, unspecified (principal); I10 Essential (primary) hypertension
CPT/HCPCS: 99213; A9270; G0463

== ENCOUNTER 2025-02-03 13:12 | Outpatient (AMB) | payer MEDICAID, SELFPAY ==
[2025-02-03 13:23] VITALS: BP 135/88; PULSE 65; RESP 19; TEMP 36.5; O2SAT 98; BMI 28.3
--- NOTE | 2025-02-03 13:23 | PD.GSCLVISIT ---
[facility] 02/03/25 13:23 Height 1.73 m Height Method Stated Weight 84.623 kg Weight Measurement Method Standing Scale BMI 28.3 BP 135/88 H Blood Pressure Source Automatic Cuff Blood Pressure Location Left Upper Arm Position Sitting Respiration 19 Pulse 65 Pulse Source Monitor Temp 97.7 F Temp Source Temporal Artery Scan Pulse Oximetry (%) 98 Oxygen Delivery Method Room Air Med/Allergies Allergies & Medications Allergies No Known Allergies Allergy (Verified 02/03/25 13:24) Medication Reconciliation hydrocodone 5 mg-acetaminophen 325 mg tablet 1 tab PO BID PRN pain #10 tabs 01/20/24 [Rx Confirmed 02/03/25] metronidazole 1 % topical gel with pump 1 applic topical QDAY #55 grams 09/09/24 [Rx Confirmed 02/03/25] hydrocortisone 2.5 % topical cream with perineal applicator 1 applic [place] QD-BID PRN itching 6 weeks #30 grams 10/21/24 [Rx Confirmed 02/03/25] MA Intake Visit Data Collection New Patient or Established: Established Patient (seen at [facility] within 3 years) Seen by Clinical Staff ONLY (RN/MA): No Reason for Visit:: F/U PERIANAL FISTULA Pain Present Currently: No (SWELLING) Pain scale:: 0 Pain Scale Used: Pride-Miller/Numerical Pickle Maker Required: Yes PCP or OBGYN visit in last 3 months: Yes Hx Now: No Do You Feel Safe at Home: Yes Authorities Contacted: N/A Smoking Status Smoking Status: Never smoker Immunization / Flu Flu Vaccine in the Last 12 Months: No Flu Vaccine Exclusion Criteria: No Exclusion Criteria Past Medical History Past Medical History CARDIAC: Positive Hypertension; Negative Cardiac Disorders or Congestive Heart Failure RESPIRATORY: Negative Chronic Obstructive Pulmonary Disease (COPD) or Asthma GENITOURINARY: Negative Renal Disease ENDOCRINE: Negative Diabetes Mellitus Type 1 or Diabetes Mellitus Type 2 HEMATOLOGIC: Negative Sickle Cell Disease Social History SMOKING STATUS: Smoking status: Never smoker Travel Risk Travel Hx Recent Travel: No HPI HPI Narrative HISTORY OF PRESENT ILLNESS ISandra, have obtained verbal consent from the patient, to be recorded during this encounter which may include, but not limited to, medical history, examination, treatment plans, and relevant health information.? Patient was informed that recording will be read and reviewed by myself before inclusion in the medical chart. The patient is here for a follow-up of a fistula. He is accompanied by a promotional representative. He reports intermittent drainage from the fistula, with the most recent episode occurring approximately 4 days ago. When the area becomes swollen and inflamed, it becomes irritated, painful, and itchy. This discomfort continues until the fistula bursts, after which the swelling subsides. He has been using a prescribed cream on the fistula. He notes an improvement in his condition, with only 1 or 2 episodes per month compared to the previous consistent issue. He expresses uncertainty about the potential for spontaneous healing of the fistula. His bowel movements are generally regular, although he occasionally experiences minor difficulties. ROS Review of Systems Systems Reviewed: All systems reviewed, normal except as documented Objective/Exam General General Appearance: alert, cooperative and well groomed Resp Respiratory exam: Absent respiratory distress Rectal Rectal exam: Present other (left posterior perianal region there is an external opening approx 2cm from the verge which is mildly tender, no erythema) Assessment & Plan Diagnosis / Problem List (1) Perianal fistula: Status: Acute Assessment & Plan: Reports occasional drainage and irritation from the fistula, with the last episode occurring about 4 days ago. Experiences swelling, pain, and itching until the fistula bursts, after which the symptoms subside. Has been using the prescribed cream and notes some improvement, with fewer episodes per month compared to before. Surgical intervention was discussed as a potential treatment option, involving a two-stage procedure. The first stage would involve placing a rubber band through the fistula, and the second stage would occur once drainage has significantly reduced. While the surgery is not urgent, it is recommended as fistulas typically do not heal on their own. The process to obtain insurance authorization will be initiated. Pt expressed understanding and is agreeable with proceeding Office Procedures GNS Level of Care Nursing/Assessment Patient Status: Established Patient Nursing Assessment/Reassesment: Medication Reconciliation, Update PMH in EMR and Vital Signs Coordination of Care: Complex Care and Chronic Disease 1-5, Consent,records obtained, informed consent, Education Simp Pt/Fam, Results/Orders obtained and Staff clarify orders Special Needs: Language special needs Established Patient Charge Established Patient Point Assignment: 90 Established Patient Point Charge: EP Level 3 (80-115) Patient Portal Questionaires Social History Tobacco History Smoking Status: Never smoker Domestic Abuse History Do You Feel Safe at Home: Yes Review of Systems Report any current symptoms Only answer those that you have currently: Past Medical History Past Medical History Have you ever been diagnosed with any of the following: Cardiology Problems Congestive Heart Failure: No Hypertension: Yes Respiratory Problems Chronic Obstructive Pulmonary Disease (COPD): No Asthma: No Genital/Urinary Problems Renal Disease: No Endocrine Problems Diabetes Mellitus Type 1: No Diabetes Mellitus Type 2: No Blood Problems Sickle Cell Disease: No
== END 2025-02-03 14:18 | disposition home or self-care (01) ==
LOC: HODSRG 13:12
PROVIDERS: PCP Family Medicine; Referring Provider Family Medicine; Supervising Provider Surgery; Visit Provider Surgery
DX: K60.30 Anal fistula, unspecified (principal); I10 Essential (primary) hypertension
CPT/HCPCS: 99213; G0463

== ENCOUNTER 2025-03-03 09:38 | Outpatient (AMB) | payer MEDICAID, SELFPAY ==
--- NOTE | 2025-03-03 09:44 | GSCOFFNT_ITS ---
[facility] 03/03/25 09:48 Height 1.73 m Height Method Measured Weight 83.631 kg Weight Measurement Method Standing Scale BMI 27.9 BP 144/85 H Blood Pressure Source Automatic Cuff Blood Pressure Location Left Upper Arm Position Sitting Respiration 16 Pulse 59 L Pulse Source Monitor Temp 97.2 F Temp Source Temporal Artery Scan Pulse Oximetry (%) 98 Oxygen Delivery Method Room Air Med/Allergies Allergies & Medications Allergies No Known Allergies Allergy (Verified 03/03/25 09:48) Medication Reconciliation hydrocodone 5 mg-acetaminophen 325 mg tablet 1 tab PO BID PRN pain #10 tabs 01/20/24 [Rx Confirmed 03/03/25] metronidazole 1 % topical gel with pump 1 applic topical QDAY #55 grams 09/09/24 [Rx Confirmed 03/03/25] hydrocortisone 2.5 % topical cream with perineal applicator 1 applic [place] QD-BID PRN itching 6 weeks #30 grams 10/21/24 [Rx Confirmed 03/03/25] MA Intake Visit Data Collection New Patient or Established: Established Patient (seen at [facility] within 3 years) Seen by Clinical Staff ONLY (RN/MA): No Reason for Visit:: PRE OP & SETON PLACEMENT Pain Scale Used: Pride-Miller/Numerical Director Sales Support Required: Yes PCP or OBGYN visit in last 3 months: Yes Hx Now: No Do You Feel Safe at Home: Yes Authorities Contacted: N/A Smoking Status Smoking Status: Never smoker Immunization / Flu Flu Vaccine in the Last 12 Months: No Flu Vaccine Exclusion Criteria: Refused by Patient Past Medical History Past Medical History CARDIAC: Positive Hypertension; Negative Cardiac Disorders or Congestive Heart Failure RESPIRATORY: Negative Chronic Obstructive Pulmonary Disease (COPD) or Asthma GENITOURINARY: Negative Renal Disease ENDOCRINE: Negative Diabetes Mellitus Type 1 or Diabetes Mellitus Type 2 HEMATOLOGIC: Negative Sickle Cell Disease Social History SMOKING STATUS: Smoking status: Never smoker HPI HPI Narrative Spoke to pt with in-person treasury representative 29M who presented with perianal abscess s/p aspiration 01/2024, course complicated by perianal fistula here for planned follow up. Pt states that in recent days he had increased drainage but as of the last couple of days the drainage decreased again, which is the cycle he has been experiencing pain. He denies pain but has occasional burning which is manageable. His BMs remain soft and regular, without any straining and he has no changes in his health otherwise ROS Review of Systems Systems Reviewed: All systems reviewed, normal except as documented Objective/Exam General General Appearance: alert, cooperative and well groomed Resp Respiratory exam: Absent respiratory distress Assessment & Plan Diagnosis / Problem List (1) Perianal fistula: Status: Acute Assessment & Plan: 29M who presented with perianal abscess s/p aspiration 01/2024, course complicated by perianal fistula here for planned follow up before seton placement. Pt understands seton placement is the first of two surgeries and that I will evaluate him every 6 weeks until there is noticeably less drainage before scheduling definitive surgery. All questions were answered and pt agrees to proceed Office Procedures GNS Level of Care Nursing/Assessment Patient Status: Established Patient Nursing Assessment/Reassesment: Medication Reconciliation, Update PMH in EMR and Vital Signs Coordination of Care: Complex Care and Chronic Disease 1-5, Education Complex Pt/Fam, Consent,records obtained, informed consent, Results/Orders obtained and Staff clarify orders Special Needs: Language special needs Established Patient Charge Established Patient Point Assignment: 95 Established Patient Point Charge: EP Level 3 (80-115) Patient Portal Questionaires Social History Tobacco History Smoking Status: Never smoker Domestic Abuse History Do You Feel Safe at Home: Yes Review of Systems Report any current symptoms Only answer those that you have currently: Past Medical History Past Medical History Have you ever been diagnosed with any of the following: Cardiology Problems Congestive Heart Failure: No Hypertension: Yes Respiratory Problems Chronic Obstructive Pulmonary Disease (COPD): No Asthma: No Genital/Urinary Problems Renal Disease: No Endocrine Problems Diabetes Mellitus Type 1: No Diabetes Mellitus Type 2: No Blood Problems Sickle Cell Disease: No
[2025-03-03 09:48] VITALS: BP 144/85; PULSE 59; RESP 16; TEMP 36.2; O2SAT 98; BMI 27.9
== END 2025-03-03 10:07 | disposition home or self-care (01) ==
LOC: HODSRG 09:38
PROVIDERS: PCP Family Medicine; Referring Provider Family Medicine; Supervising Provider Surgery; Visit Provider Surgery
DX: K60.30 Anal fistula, unspecified (principal)
CPT/HCPCS: 99213; G0463